=== PATIENT | male | born 1985 | race Caucasian/White ===

== ENCOUNTER 2017-11-15 21:18 | Emergency (ER) | payer MEDICAID ==
[~2017-11-15] VITALS: Ht 188 cm; Wt 75.2 kg
[2017-11-15 21:37] VITALS: BP 158/91
[2017-11-15 23:00] LABS: MICROSCOPIC INDICATED
[2017-11-15 23:08] LABS: CULTURE INDICATED? NO
== END 2017-11-15 23:58 | disposition home or self-care (01) ==
LOC: ED 22:32
DX: N45.3 Epididymo-orchitis (principal)
CPT/HCPCS: 76870; 81001; 99285